=== PATIENT | male | born 1965 | race African-American/Black ===

== ENCOUNTER 2016-07-09 12:45 | Emergency (ER) | payer SELFPAY ==
[~2016-07-09] VITALS: Ht 165.1 cm; Wt 66.4 kg
[~2016-07-09 12:45] MED LIST: ANUCORT-HC25 MG PR; ANUSOL HC,ANUCO25 MG PR; COLACE100 MG PO; KEFLEX500 MG PO; MIRALAX17 GM PO; NAPROSYN500 MG PO; NAPROXEN500 MG PO; NIZORAL 2% CREA15 GM TP; NO HOME MEDS; NOHOMEMEDS; ULTRAM50 MG PO
[2016-07-09] MEDS ORDERED: LAMISIL AT12 GM TP (13:54)
[2016-07-09 14:14] VITALS: BP 114/79
== END 2016-07-09 14:14 | disposition home or self-care (01) ==
LOC: EME 12:45
DX: B35.3 Tinea pedis (principal); Z72.0 Tobacco use
CPT/HCPCS: 99281; 99283